=== PATIENT | female | born 1960 | race Caucasian/White ===

== ENCOUNTER 2016-04-09 13:44 | Emergency (ER) | payer MEDICAID ==
[2016-04-09] MEDS ORDERED: ALBUTEROL NEB 2.5 MG/3 ML INH STA (14:55)
[2016-04-09] MEDS ORDERED: predniSONE 20 MG TABLET PO STA ×2 (14:55→15:11)
[2016-04-09] MEDS ORDERED: predniSONE 20 MG TABLET ONE (15:06)
[2016-04-09] MEDS ORDERED: ALBUTEROL NEB 2.5 MG/3 ML INH ONE (15:09)
== END 2016-04-09 15:52 | disposition home or self-care (01) ==
DX: J06.9 Acute upper respiratory infection, unspecified (principal); B97.89 Other viral agents as the cause of diseases classified elsewhere; J45.909 Unspecified asthma, uncomplicated; F17.200 Nicotine dependence, unspecified, uncomplicated
CPT/HCPCS: 71020; 94640; 94664; 99283; J7512; J7613

== ENCOUNTER 2018-04-15 14:21 | Outpatient (CLI) | payer MEDICAID, OTHER ==
[2018-04-15 18:47] LABS: BASOPHILS # (AUTO) 0.1 10^3/uL (0.0-0.1); BASOPHILS % (AUTO) 1.3 %; EOSINOPHILS # (AUTO) 0.2 10^3/uL (0.0-0.7); EOSINOPHILS % (AUTO) 2.8 %; HGB - HEMOGLOBIN 13.4 g/dL (12.0-16.0); LYMPHOCYTES # (AUTO) 1.9 10^3/uL (1.5-3.5); LYMPHOCYTES % (AUTO) 31.4 %; MEAN CORPUSCULAR HEMOGLOBIN 30.2 pg (27.0-31.0); MEAN CORPUSCULAR HGB CONC 33.3 g/dL (32.0-36.0); MEAN CORPUSCULAR VOLUME 90.6 fL (81.0-99.0); MEAN PLATELET VOLUME 9.8 fL (7.9-10.8); MONOCYTES # (AUTO) 0.3 10^3/uL (0.0-1.0); MONOCYTES % (AUTO) 5.7 %; NEUTROPHILS # (AUTO) 3.5 10^3/uL (1.5-6.6); NEUTROPHILS % (AUTO) 58.8 %; PLT - PLATELET COUNT 209 10^3/uL (130-450); RED BLOOD COUNT 4.46 10^6/uL (4.20-5.40); RED CELL DISTRIBUTION WIDTH 13.3 % (12.0-15.0)
[2018-04-15 19:02] LABS: ALBUMIN 4.3 g/dL (3.2-5.5); ALBUMIN/GLOBULIN RATIO 1.2 (1.0-2.2); ALKALINE PHOSPHATASE 75 IU/L (42-121); ALT ALANINE AMINOTRANSFERASE 20 IU/L (10-60); AST ASPARTATE AMINOTRANSFERASE 22 IU/L (10-42); BILIRUBIN,TOTAL 0.6 mg/dL (0.2-1.0); BUN - BLOOD UREA NITROGEN 13 mg/dL (6-20); CALCIUM 9.1 mg/dL (8.5-10.3); CARBON DIOXIDE - CO2 30 mmol/L (21-32); CHLORIDE 99 mmol/L (101-111); CHOL/HDL RATIO 3.7 (<4.4); CHOLESTEROL 214 mg/dL; CREATININE 0.9 mg/dL (0.4-1.0); GFR - MDRD 64 (>89); GLUCOSE 113 mg/dL (70-100); HDL CHOLESTEROL 58 mg/dL; LDL CHOLESTEROL,CALCULATED 126 mg/dL; LDL/HDL RATIO 2.2 (<4.4); SODIUM 134 mmol/L (135-145); TOTAL PROTEIN 7.8 g/dL (6.7-8.2); VLDL CHOLESTEROL 30 mg/dL
[2018-04-15 19:14] LABS: HB2 TOTAL 14.5 g/dL; HEMOGLOBIN A1C 0.61 g/dL
== END 2018-04-15 23:59 ==
LOC: LAB.WCP 14:21
PROVIDERS: ATTEND Physician Assistant
DX: I10 Essential (primary) hypertension (principal); Z00.00 Encounter for general adult medical examination without abnormal findings
CPT/HCPCS: 36415; 80053; 80061; 83036; 83721; 85025

== ENCOUNTER 2018-04-30 13:23 | Outpatient (CLI) | payer OTHER | END 2018-04-30 13:24 | disposition home or self-care (01) | LOC: NS 13:23 | PROVIDERS: ATTEND Physician Assistant | DX: Z71.3 Dietary counseling and surveillance (principal); R73.03 Prediabetes; E66.9 Obesity, unspecified; Z68.39 Body mass index [BMI] 39.0-39.9, adult | CPT/HCPCS: 97802 ==

== ENCOUNTER 2018-06-04 12:51 | Outpatient (CLI) | payer OTHER | END 2018-06-04 12:52 | disposition home or self-care (01) | LOC: NS 12:51 | PROVIDERS: ATTEND Physician Assistant | DX: Z71.3 Dietary counseling and surveillance (principal); E66.9 Obesity, unspecified; R73.03 Prediabetes; Z68.38 Body mass index [BMI] 38.0-38.9, adult | CPT/HCPCS: 97803 ==

== ENCOUNTER 2018-06-19 14:46 | Outpatient (CLI) | payer OTHER ==
--- NOTE | 2018-06-19 17:27 | Mammography Report ---
Reason: SCREENING MAMMO Procedure Date: 06/19/2018 Accession Number: [id number] / [id number] Procedure: GENET - Screening Mammo w/Deric CPT Code: FULL RESULT: EXAM: Screening Mammo w/Deric DATE: 06/19/2018 3:29 PM CLINICAL HISTORY: Routine screening. No reported personal history of breast cancer. Family history breast cancer mother at age 80. TECHNIQUE: Bilateral CC and MLO views were obtained. COMPARISON: 09/06/2010 through 05/03/2009 FINDINGS: The breasts demonstrate heterogeneously dense fibroglandular parenchyma bilaterally. Bilateral breasts: There are no suspicious masses, calcifications or areas of distortion. IMPRESSION: Negative examination RECOMMENDATION: Routine annual screening unless otherwise clinically indicated. BI-RADS CATEGORY 1: Negative STANDARD QUALIFYING STATEMENTS: 1. This examination was not reviewed with the aid of Computer-Aided Detection (CAD). 2. A negative or benign imaging report should not preclude biopsy if clinically suspicious findings are present. 3. Dense breasts may obscure an underlying neoplasm. 4. This examination was reviewed with the aid of 3D breast imaging (tomosynthesis).
== END 2018-06-19 14:47 | disposition home or self-care (01) ==
LOC: DI 14:46
DX: Z12.31 Encounter for screening mammogram for malignant neoplasm of breast (principal); Z80.3 Family history of malignant neoplasm of breast
CPT/HCPCS: 77063; 77067

== ENCOUNTER 2018-07-09 11:59 | Day surgery (SDC) | payer OTHER ==
[2018-07-09] MEDS ORDERED: LACTATED RINGERS 1,000 ML IV ONE (12:25)
[2018-07-09] MEDS ORDERED: MIDAZOLAM 2 MG/2 ML VIAL IVP ONE (13:24)
[2018-07-09] MEDS ORDERED: fentaNYL 250 MCG/5 ML VIAL IVP ONE (13:24)
[2018-07-09 14:11] VITALS: BP 112/69
== END 2018-07-09 12:00 | disposition home or self-care (01) ==
LOC: SDS 11:59
PROVIDERS: ATTEND Internal Medicine Gastroenterology
PROC: 0DBN8ZZ Excision of Sigmoid Colon, Via Natural or Artificial Opening Endoscopic (ICD-10-PCS; principal; 2018-07-09 13:15)
DX: Z12.11 Encounter for screening for malignant neoplasm of colon (principal); K63.5 Polyp of colon; K57.30 Diverticulosis of large intestine without perforation or abscess without bleeding; E11.9 Type 2 diabetes mellitus without complications; J44.9 Chronic obstructive pulmonary disease, unspecified; I10 Essential (primary) hypertension; J30.9 Allergic rhinitis, unspecified; E66.9 Obesity, unspecified; Z68.37 Body mass index [BMI] 37.0-37.9, adult; Z79.52 Long term (current) use of systemic steroids; Z79.51 Long term (current) use of inhaled steroids; Z79.84 Long term (current) use of oral hypoglycemic drugs; Z87.891 Personal history of nicotine dependence
CPT/HCPCS: 45380; J3010; J7120

== ENCOUNTER 2018-07-16 13:00 | Outpatient (CLI) | payer OTHER | END 2018-07-16 13:01 | disposition home or self-care (01) | LOC: NS 13:00 | PROVIDERS: ATTEND Physician Assistant | DX: Z71.3 Dietary counseling and surveillance (principal); R73.03 Prediabetes; E66.9 Obesity, unspecified; Z68.37 Body mass index [BMI] 37.0-37.9, adult | CPT/HCPCS: 97803 ==

== ENCOUNTER 2019-04-01 08:25 | Outpatient (CLI) | payer OTHER ==
--- NOTE | 2019-04-01 10:14 | SLEEP CARE CONSULTATION ---
Information from patient questionnaire entered by Latia Anna. I have reviewed and concur with the information entered by Latia Anna. This document represents the service I personally performed and the decisions made by me, Alma Bai, RN, MSN, HOBBER. History of Present Illness Reason for Visit: New patient Chief Complaint: reports: Unrefreshed sleep, Snoring, Observed pauses in breathing (recently observed on family), Fatigue Duration of Symptoms: 40-45 years Usual bedtime: 11 pm - 1 am Time it takes to fall asleep: 5-15 mins Snores at night: Yes Observed to quit breathing while asleep: Yes Number of times waking at night: 0-1 Reasons for waking at night: reports: Choking (once only recently noted ), Bathroom, Other (coughing) Toss, Turn, or Twitch while sleeping: No Recalls having dreams: Yes Usually gets out of bed at: 8-9 am Feels refreshed in the morning: No Morning headache: No (only after naps ) Sleepy or fatigued during the day: Yes Ever fallen asleep while driving: No Takes day naps: Yes (seldom - a couple times a month) Dreams during day naps: No Prior sleep studies: No - Parasomnia Symptoms Ever been unable to move upon waking from sleep: No Walks in sleep: No Talks in sleep: No Ever acted out dreams in sleep: No Ever felt weak in the knees when startled or emotional: No Bothered by creepy, crawly, restless sensations in legs: No Problems with memory or concentration: No Subjective Initial [place] Sleepiness Scale score: 14 Past Medical History Past Medical History: reports: Hypertension, Diabetes, Insulin resistance, Asthma (Patient reports as asthma but PCP referral note states COPD), GERD, Other (environmental allergies) Social History The patient's occupation is retired. Patient is / and lives in [facility]. Have you smoked in the past 12 months: No Cigarettes per day (20/pack): 20 Years of smokin (slowly decreased intake the last 8 years ) Quit date: 3 years ago Smoking Pack Years: 40.0 Alcohol use: Yes Alcohol amount and frequency: 1 drink a month Caffeine use: Yes Caffeine amount and frequency: 2 cups Family History Family history of sleep disordered breathing: Yes Family Hx Sleep Apnea: Mother: Snoring, Sibling: Snoring, Other: Sleep apnea - Treated (son just started CPAP) Allergies and Home Medications Known drug allergies: Yes (Advil ) Drug allergies reviewed: Yes Home medication list reviewed: Yes Allergy and home medication list: Advair 250/50mcg daily Spiriva daily Pro AIR rescue inhaler prn Azelastine daily Kis Aler-Darvin nasal spray 2 sprays daily Cetirizine 10mg daily B Complex daily Vitafusion vitamins daily Metformin 500mg daily Losartan 50mg daily hydrochlorithiazide 25mg daily OTC ibuprofen or acetaminophen daily olopatadine eye solution as needed. Review of Systems Weight loss over past 5 years: 32 Cardiovascular: reports: high blood pressure Respiratory: reports: shortness of breath (exersion such as stairs), wheeze (seldom) Gastrointestinal: reports: heartburn (seldom ) Neurological: reports: headaches (seldom) Ear/Nose/Throat: reports: nasal congestion, sinus problems, dry mouth/throat (most of time ) Endocrine: reports: sluggishness Immunologic: reports: sneezing Physical Exam Blood Pressure: 114/80 Cuff size: long Heart Rate: 78 O2 Saturation: 97 Height: 5 ft 4.5 in Weight: 213 lb 3.2 oz Body Mass Index: 36.0 BMI Classification: Obesity Class 2 Neck circumference: 15 Nasal exam: positive: erythema, blood tinged nasal secretions HEENT: No craniofacial malformation Nostrils: partially obstructed Turbinates: boggy Septum: deviated right Mouth and throat: narrow oropharynx Soft palate: long Hard palate: normal Uvula: normal Uvula visualization: 25% Mallampati Class III Tongue: normal in size (wears dentures but does not like and not in today) Tonsils: small Chin and jaw: normal size and position Neck: normal w/o lymphadenopathy or thyromegaly Heart: regular rate and rhythm Lungs: clear bilaterally Abdomen: soft, non-tender, other: (small non tender smooth mass aproximately 1cm left upper left quadrant) Extremities: no edema or clubbing Neurologic: intact (grossly) Impression and Plan 1. Suspected Obstructive Sleep Apnea-Hypopnea Syndrome, as suggested by a history of loud and irregular snoring, observed cessation of breath while asleep, unrefreshed sleep, and excessive daytime sleepiness. Narrow oropharynx and obesity are common predisposing factors for obstructive sleep apnea-hypopnea syndrome. Essential hypertension can be caused by untreated apnea. I recommend proceeding to polysomnography to confirm the diagnosis and to assess severity. If the patient has significant sleep disordered breathing, a manual CPAP titration study will also be performed to find the optimal treatment pressure. I informed the patient of what the sleep studies involve and after some discussion, obtained agreement to proceed. The pathophysiology of obstructive sleep apnea-hypopnea syndrome was discussed with the patient and health risks of cardiovascular and cerebrovascular disease if not treated. AAS brochure for obstructive sleep apnea-hypopnea syndrome given and reviewed. 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 Patient agreed to plan. * Schedule polysomnography +- manual CPAP titration study * Avoid long distance driving or driving when feeling sleepy. * Avoid alcohol, sedative and muscle relaxant around bedtime. * Continue to lose weight. * Follow up with PCP for further evaluation of left upper quadrant small mass noted recently by patient. * Review instructions provided by trained office staff on how to prepare for the sleep study. * Return for follow-up after sleep study completed. Time Spent with Patient (minutes): 40 I spent 100% of this visit face to face with the patient with greater than 50% of this was spent time counseling the patient and coordination of care.
[2019-04-01 10:15] VITALS: BP 114/80
== END 2019-04-01 08:26 | disposition home or self-care (01) ==
LOC: SC 08:25
PROVIDERS: ATTEND Nurse Practitioner Family
DX: G47.10 Hypersomnia, unspecified (principal); R06.81 Apnea, not elsewhere classified; G47.8 Other sleep disorders; R06.83 Snoring; E66.9 Obesity, unspecified; Z68.36 Body mass index [BMI] 36.0-36.9, adult; F17.210 Nicotine dependence, cigarettes, uncomplicated
CPT/HCPCS: 99204; 99212

== ENCOUNTER 2019-04-08 19:30 | Outpatient (CLI) | payer OTHER | END 2019-04-08 19:31 | disposition home or self-care (01) | LOC: SC 19:30 | PROVIDERS: ATTEND Internal Medicine Pulmonary Disease | DX: G47.10 Hypersomnia, unspecified (principal); R06.81 Apnea, not elsewhere classified; E66.9 Obesity, unspecified; Z68.36 Body mass index [BMI] 36.0-36.9, adult | CPT/HCPCS: 95810 ==

== ENCOUNTER 2019-05-20 13:16 | Outpatient (CLI) | payer OTHER ==
[2019-05-20 14:15] VITALS: BP 110/74
--- NOTE | 2019-05-20 14:15 | SLEEP CARE CONSULTATION ---
Information from patient questionnaire entered by Latia Anna. I have reviewed and concur with the information entered by Latia Anna. This document represents the service I personally performed and the decisions made by me, Alma Bai RN, MSN, FINE [employer]ER. History of Present Illness Initial [place] Sleepiness Scale score: 14 Current [place] Sleepiness Scale score: 13 Additional HPI information: MELA FOUNTAIN returns for follow up and results of the recently performed polysomnography. I explained the pathophysiology behind obstructive sleep apnea. The sleep study showed that the patient has snoring but no significant sleep disorderd breathing. However, she felt she did not sleep much that night and she did have reduced sleep efficiency noted on sleep study due to sleep onset insomnia and prolonged awakenings during the night. The patient usually sleeps better at home but has slept more restless since sleep test for unknown reason. Patient has moderate to loud snoring. Snoring and apnea risk can be reduced by weight loss. Weight loss is best achieved with diet consult. Patient instructed to contact PCP for referral if needed. So far she has been successful in losing 40 pounds and plans on losing more. Snoring can also be treated with an oral appliance from a dentist but patient wears dentures so not an option. In addition, an ENT evaluation can be do to see if other treatment is indicated. Patient counseled not drink alcohol less than 4 hours before bedtime as it can increase snoring and apnea. Patient was cautioned about risks of drowsy driving until sleepiness symptoms resolve. Patient denies drowsy driving. [facility] patient education on snoring and sleep apnea given and reviewed at last visit . Sleep Study - Results Polysomnography/Home Sleep Study results: The quality of the study is good. The patient had reduced sleep efficiency due to sleep onset insomnia and a prolonged awakening in the middle of the night.. The sleep architecture was abnormal for sleep fragmentation and reduced amount of time spent in REM sleep. Respiratory monitoring showed no significant sleep disordered breathing (AHI = 1.5) or hypoxia (julian oxygen saturation of 89%). The few respiratory events occurred mainly during supine sleep (supine AHI = 4.3; non-supine = 1.10). Snore was moderate to loud in intensity. There was no significant periodic leg movement of sleep. Cardiac rhythm was normal sinus rhythm without significant arrhythmia. No abnormal behavior (parasomnia) observed during the night. Allergies and Home Medications Known drug allergies: Yes (advil ) Home medication list reviewed: Yes (no changes from initial ) Review of Systems Review of systems same as previous: Yes Physical Exam Blood Pressure: 110/74 Cuff size: long Heart Rate: 81 O2 Saturation: 97 Height: 5 ft 5 in Weight: 216 lb 9.6 oz (with shoes ) Weight change since last visit: gained 3 pounds Body Mass Index: 36.0 BMI Classification: Obese Neck circumference: 15 Uvula visualization: 25% Mallampati Class III Impression and Plan 1. Suspected sleep apnea. Polysomnography showed snoring but no significant sleep disordered breathing. 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 She felt she not even sleep what sleep that was recorded. Thus since there is no change in sleepiness symptoms ( [place] sleepiness scale 13) or physical exam ( Mallapatti lll), I advise a home sleep study to rule out any significant sleep disordered breathing as she has hypertension and diabetes which can be caused by untreated apnea. Patient advised also how losing weight will reduce her snoring and apnea risk and she is working on weight loss. * Home sleep study * Attempt to lose weight * Avoid alcohol consumption near bedtime * The patient is cautioned about driving until sleepiness is completely resolved. * Return after home sleep study completed. for follow up. I will response compliance at that time. Time Spent with Patient (minutes): 30 I spent 100% of this visit face to face with the patient with greater than 50% of this was spent time counseling the patient and coordination of care.
== END 2019-05-20 13:17 | disposition home or self-care (01) ==
LOC: SC 13:16
PROVIDERS: ATTEND Nurse Practitioner Family
DX: G47.10 Hypersomnia, unspecified (principal); R06.83 Snoring; E66.9 Obesity, unspecified; Z68.36 Body mass index [BMI] 36.0-36.9, adult
CPT/HCPCS: 99212; 99214

== ENCOUNTER 2020-06-28 13:09 | Outpatient (CLI) | payer OTHER ==
--- NOTE | 2020-06-29 08:24 | Mammography Report ---
BILATERAL DIGITAL SCREENING MAMMOGRAM 3D/2D: 06/28/2020 CLINICAL: Routine screening. Comparison is made to exams dated: 06/19/2018 mammogram and 09/06/2010 mammogram - [facility]. The tissue of both breasts is heterogeneously dense. This may lower the sensitivity of diane mography. There are benign calcifications in both breasts. No significant masses, calcifications, or other findings are seen in either breast. There has been no significant interval change. IMPRESSION: BENIGN There is no mammographic evidence of malignancy. A 1 year screening mammogram is recommended. This exam was interpreted at Station ID: [id number]. NOTE: For mammograms, a report in lay terms will be sent to the patient. Approximately 15% of breast malignancies will not be visualized mammographically. In the management of a palpable breast mass, a negative mammogram must not discourage biopsy of a clinically suspicious lesion. Electronically Signed By: Margot garcía/penrad:06/28/2020 13:55:43 ACR BI-RADS Category 2: Benign Finding(s) 3342F PARENCHYMAL PATTERN: (D) - The breast(s) demonstrate(s) heterogeneously dense fibroglandular courtney bro. BI-RADS CATEGORY: (2) - 2 RECOMMENDATION: (ANNUAL) - Recommend routine annual screening mammography. [id number] 1 year screening LATERALITY: (B)
== END 2020-06-28 13:10 | disposition home or self-care (01) ==
LOC: DI 13:09
DX: Z12.31 Encounter for screening mammogram for malignant neoplasm of breast (principal)

== ENCOUNTER 2022-06-10 14:06 | Outpatient (CLI) | payer OTHER ==
--- NOTE | 2022-06-11 10:36 | Mammography Report ---
BILATERAL DIGITAL SCREENING MAMMOGRAM 3D/2D: 06/10/2022 CLINICAL: Routine screening. Comparison is made to exams dated: 06/28/2020 mammogram and 06/19/2018 mammogram - [facility]. Both breasts are heterogeneously dense, which may obscure small masses (category c / 51-75% glandular tissue). There are benign calcifications in both breasts. No significant masses, calcifications, or other findings are seen in either breast. There has been no significant interval change. IMPRESSION: BENIGN There is no mammographic evidence of malignancy. A 1 year screening mammogram is recommended. Based on the Tyrer Cuzick model (a risk assessment model) the patients lifetime risk is 12.9% and he r 10 year risk is 6.1%. According to the ACR, ACS, and NCCN guidelines, an annual breast MRI exam ligia ng with mammogram is recommended if the patients lifetime risk is 20% or greater. This exam was interpreted at Station ID: [id number]. NOTE: For mammograms, a report in lay terms will be sent to the patient. Approximately 15% of breast malignancies will not be visualized mammographically. In the management of a palpable breast mass, a negative mammogram must not discourage biopsy of a clinically suspicious lesion. Electronically Signed By: Neri melendez/jane:06/10/2022 17:51:35 letter sent: No_Letter ACR BI-RADS Category 2: Benign Finding(s) 3342F PARENCHYMAL PATTERN: (D) - The breast(s) demonstrate(s) heterogeneously dense fibroglandular courtney bro. BI-RADS CATEGORY: (2) - 2 Mammogram [id number] 1 year screening LATERALITY: (B)
== END 2022-06-10 14:07 | disposition home or self-care (01) ==
LOC: DI 14:06
DX: Z12.31 Encounter for screening mammogram for malignant neoplasm of breast (principal)

== ENCOUNTER 2023-02-21 11:15 | Outpatient (CLI) | payer MEDICARE, OTHER ==
[2023-02-21 11:40] LABS: CALCIUM 9.4 mg/dL (8.5-10.3); CREATININE 0.8 mg/dL (0.6-1.3); POTASSIUM 3.9 mmol/L (3.5-4.5)
[2023-02-21 12:22] LABS: ESTIMATED AVERAGE GLUCOSE 126 mg/dL (70-100)
== END 2023-02-21 11:16 | disposition home or self-care (01) ==
LOC: LAB 11:15
PROVIDERS: ATTEND Family Medicine
DX: E11.9 Type 2 diabetes mellitus without complications (principal); E66.9 Obesity, unspecified
CPT/HCPCS: 36415; 80048; 83036

== ENCOUNTER 2023-07-18 11:28 | Emergency (ER) | payer MEDICARE, OTHER ==
[2023-07-18 11:46] VITALS: O2SAT 97
--- NOTE | 2023-07-18 12:02 | ED Physician Documentation ---
History of Present Illness - Stated complaint Stated Complaint: - Chief complaint Chief Complaint: General - Additonal information Additional information: 63 yo female Was sent here to the emergency department from the walk-in clinic for concerns of possible bladder prolapse. Patient says that she started to notice some vaginal bulging a couple days ago she has had no pain no urinary urgency no urinary frequency no dysuria. Patient says that she called to make an appoint with her primary care provider and they informed her that if she wanted to go to the walk-in clinic she can do so she went to the walk-in clinic and the walk-in clinic nurse practitioner was concern for possible bladder prolapse so she was sent to the emergency department for further evaluation. Patient reports that she had 3 vaginal births without any difficulty or complication. She says she has always had urinary incontinence since she has had her babies for decades there is been no change in this pattern. No bladder pain no lower abdominal pain no pelvic pain. No fevers or chills. PD PAST MEDICAL HISTORY - Past Medical History Cardiovascular: Hypertension Respiratory: Asthma, COPD Endocrine/Autoimmune: Type 2 diabetes GI: GERD : None HEENT: Chronic sinusitis Psych: Anxiety Musculoskeletal: Gout Derm: None - Past Surgical History Past Surgical History: Yes General: EGD - Present Medications Home Medications: Ambulatory Orders Medication Instructions Recorded Confirmed Albuterol Sulf [Ventolin Hfa 2 puffs INH Q4HR PRN #1 inhaler 04/09/16 07/18/23 Inhaler] Cetirizine [ZyrTEC] 10 mg PO DAILY 07/08/18 07/18/23 Fluticasone/Salmeterol [Advair 1 inhaler PO BID 07/08/18 07/18/23 100-50 Diskus] Montelukast [Singulair] 10 mg PO DAILY 07/08/18 07/18/23 Tiotropium [place] [Spiriva] 18 mcg INH BID 07/08/18 07/18/23 hydroCHLOROthiazide 25 mg PO DAILY 07/08/18 07/18/23 [Hydrochlorothiazide] metFORMIN [Glucophage] 1,000 mg PO DAILY PM 07/08/18 07/18/23 - Allergies Allergies/Adverse Reactions: Allergies Allergy/AdvReac Type Severity Reaction Status Date / Time venom-honey bee Allergy Anaphylaxis Verified 07/18/23 11:44 codeine AdvReac Headache Verified 07/18/23 11:44 ibuprofen [From Advil] AdvReac Itching Verified 07/18/23 11:44 - Social History Does the pt smoke?: No Smoking Status: Former smoker Does the pt drink ETOH?: Yes Does the pt have substance abuse?: No - Immunizations Immunizations are current?: Yes PD ED PE NORMAL - Vitals Vital signs reviewed: Yes - General General: Alert and oriented X 3, No acute distress, Well developed/nourished - Abdomen Abdomen: Soft, Non tender, No organomegaly - Back Back: No CVA TTP - Derm Derm: Normal color, Warm and dry - Psych Psych: Normal mood, Normal affect PD ED PE EXPANDED - Female Female : Tissue present (bulging tissue at the 6:00 region of vagina), Supply Aide present (VINCENZO Guerra At bedside). No: Skin lesions, Vaginal Bleeding, Vaginal Discharge, CMT, Dilated cervix, Enlarged uterus Results - Vitals Vitals: Vital Signs - 24 hr 07/18/23 11:35 Temperature 36.3 C L Heart Rate 85 Respiratory 18 Rate Blood Pressure 151/97 H O2 Saturation 97 Oxygen O2 Source Room air - Labs Labs: Laboratory Tests 07/18/23 12:26 Urine Color YELLOW Urine Clarity CLEAR Urine pH 6.0 Ur Specific [place] 1.020 Urine Protein NEGATIVE Urine Glucose (UA) NEGATIVE Urine Ketones NEGATIVE Urine Occult Blood TRACE-INTA Urine Nitrite NEGATIVE Urine Bilirubin NEGATIVE Urine Urobilinogen 0.2 (NORMAL) Ur Leukocyte Esterase NEGATIVE Ur Microscopic Review NOT INDICATED Urine Culture Comments NOT INDICATED PD Medical Decision Making - ED course ED course: 63-year-old female presents emergency department for concerns of bladder prolapse from the walk-in clinic. Ultrasound does not reveal any vaginal or b ladder prolapse. On my exam with Corina LOYA as account officer I do not see any signs or symptoms or concerns of bladder prolapse. Ultrasound also confirms there is no concerns with bladder prolapse unfortunately not ideal ultrasound was complete as patient's bladder was not full. I do not believe that patient needs any further emergent workup. She has no dysuria no bladder pain no CVA tenderness. Urinalysis is unremarkable for any signs symptoms of urinary tract infection. Patient has an appoint with her primary care provider soon where she will get a PARTS CONSULTANT referral for further evaluation of this but at this point in time I do not believe that patient is experiencing a bladder or vaginal prolapse there is a possibility that there could be a very minor vaginal wall prolapse the patient is still able to empty her bladder without any difficulty as well as her bowels. Departure - Departure Disposition: 01 Home, Self Care Clinical Impression: Vaginal wall prolapse Instructions: Pap Test Comments: Thank you for trusting us with your care. Ultrasound did not reveal any acute abnormalities or findings at this point in time although I do think that you would greatly benefit from having PARTS CONSULTANT further evaluate you. Please come back to the emergency department for starting to notice any fevers or chills, vaginal pain or discomfort, or any other concerning emergent symptoms. Forms: PCP List
[2023-07-18 12:34] LABS: BILIRUBIN,URINE NEGATIVE (NEGATIVE); GLUCOSE, URINE (UA) NEGATIVE (NEGATIVE); KETONES,URINE (UA) NEGATIVE (NEGATIVE); LEUKOCYTE ESTERASE, URINE NEGATIVE (NEGATIVE); NITRITE,URINE NEGATIVE (NEGATIVE); OCCULT BLOOD,URINE TRACE-INTA (NEGATIVE); PROTEIN,URINE NEGATIVE (NEGATIVE); UROBILINOGEN,URINE 0.2 (NORMAL) E.U./dL (NORMAL)
[2023-07-18 12:36] LABS: CLARITY,URINE CLEAR (CLEAR)
[2023-07-18 14:30] VITALS: BP 146/72
--- NOTE | 2023-07-18 16:09 | Ultrasound Report ---
PROCEDURE: Pelvic Limited INDICATIONS: check for prolapse TECHNIQUE: Real-time transabdominal scanning was performed of the pelvic organs, with image documentation. Melchor slabial imaging was utilized. COMPARISON: None. FINDINGS: Translabial imaging with and without Valsalva demonstrates no evidence of bladder or uterine prolapse . IMPRESSION: Negative limited pelvic ultrasound for evidence of bladder or uterine prolapse. Reviewed by: Ben Rodriguez MD on 07/18/2023 4:08 PM PDT Approved by: Ben Rodriguez MD on 07/18/2023 4:08 PM PDT Station ID: [id number]
== END 2023-07-18 14:30 | disposition home or self-care (01) ==
LOC: ED 11:28
DX: N81.10 Cystocele, unspecified (principal); I10 Essential (primary) hypertension; J44.9 Chronic obstructive pulmonary disease, unspecified; E11.9 Type 2 diabetes mellitus without complications; M10.9 Gout, unspecified; Z79.84 Long term (current) use of oral hypoglycemic drugs; Z79.899 Other long term (current) drug therapy
CPT/HCPCS: 81001; 81003; 87086; 99283; 99284

== ENCOUNTER 2023-08-08 16:10 | Outpatient (CLI) | payer MEDICARE, OTHER ==
[2023-08-08 16:30] LABS: BASOPHILS # (AUTO) 0.1 10^3/uL (0.0-0.1); BASOPHILS % (AUTO) 0.9 %; EOSINOPHILS # (AUTO) 0.1 10^3/uL (0.0-0.7); EOSINOPHILS % (AUTO) 1.2 %; HGB - HEMOGLOBIN 12.8 g/dL (12.0-16.0); LYMPHOCYTES # (AUTO) 2.1 10^3/uL (1.5-3.5); LYMPHOCYTES % (AUTO) 24.3 %; MEAN CORPUSCULAR HEMOGLOBIN 27.9 pg (27.0-31.0); MEAN CORPUSCULAR VOLUME 87.1 fL (81.0-99.0); MEAN PLATELET VOLUME 10.4 fL (7.9-10.8); MONOCYTES # (AUTO) 0.7 10^3/uL (0.0-1.0); MONOCYTES % (AUTO) 7.6 %; NEUTROPHILS # (AUTO) 5.6 10^3/uL (1.5-6.6); NEUTROPHILS % (AUTO) 65.8 %; PLT - PLATELET COUNT 225 10^3/uL (130-450); RED BLOOD COUNT 4.59 10^6/uL (4.20-5.40); RED CELL DISTRIBUTION WIDTH 13.2 % (12.0-15.0); WHITE BLOOD COUNT 8.5 x10^3/uL (4.8-10.8)
[2023-08-08 16:51] LABS: ALBUMIN 4.5 g/dL (3.2-5.5); ALBUMIN/GLOBULIN RATIO 1.7 (1.0-2.2); ALKALINE PHOSPHATASE 60 IU/L (42-121); ALT ALANINE AMINOTRANSFERASE 15 IU/L (10-60); AST ASPARTATE AMINOTRANSFERASE 16 IU/L (10-42); BILIRUBIN,TOTAL 0.6 mg/dL (0.2-1.0); BUN - BLOOD UREA NITROGEN 15 mg/dL (6-20); CALCIUM 9.8 mg/dL (8.5-10.3); CARBON DIOXIDE - CO2 27 mmol/L (21-32); CHLORIDE 104 mmol/L (101-111); CHOL/HDL RATIO 3.2 (<4.4); CHOLESTEROL 210 mg/dL; CREATININE 0.8 mg/dL (0.6-1.3); GFR - MDRD 72 (>89); GLUCOSE 97 mg/dL (74-104); HDL CHOLESTEROL 65 mg/dL; LDL CHOLESTEROL,CALCULATED 121 mg/dL; LDL/HDL RATIO 1.9 (<4.4); POTASSIUM 3.3 mmol/L (3.5-4.5); SODIUM 140 mmol/L (135-145); TOTAL PROTEIN 7.2 g/dL (6.4-8.9); TRIGLYCERIDES 120 mg/dL (48-352); VLDL CHOLESTEROL 24 mg/dL
[2023-08-08 17:03] LABS: THYROID STIMULATING HORMONE 2.21 uIU/mL (0.34-5.60)
[2023-08-08 21:45] LABS: ESTIMATED AVERAGE GLUCOSE 131 mg/dL (70-100); HEMOGLOBIN A1c% 6.2 % (4.27-6.07)
== END 2023-08-08 16:11 | disposition home or self-care (01) ==
LOC: LAB 16:10
PROVIDERS: ATTEND Family Medicine
DX: I10 Essential (primary) hypertension (principal); E66.9 Obesity, unspecified; K21.9 Gastro-esophageal reflux disease without esophagitis; E78.2 Mixed hyperlipidemia; E11.9 Type 2 diabetes mellitus without complications; J44.9 Chronic obstructive pulmonary disease, unspecified
CPT/HCPCS: 36415; 80053; 80061; 83036; 83721; 84443; 85025

== ENCOUNTER 2023-10-09 11:51 | Outpatient (CLI) | payer MEDICARE, OTHER ==
--- NOTE | 2023-10-09 20:53 | XRAY Report ---
PROCEDURE: Chest 2V INDICATIONS: COUGH TECHNIQUE: 2 views of the chest were acquired. COMPARISON: Chest x-ray 04/09/2016 FINDINGS: Surgical changes and devices: None. Lungs and pleura: No pleural effusions or pneumothorax. Lungs are clear. Mediastinum: Mediastinal contours appear normal. Heart size is normal. Bones and chest wall: No suspicious bony lesions. Overlying soft tissues appear unremarkable. IMPRESSION: No acute cardiopulmonary process. Reviewed by: Gertrude Miranda MD on 10/09/2023 8:51 PM PDT Approved by: Gertrude Miranda MD on 10/09/2023 8:51 PM PDT Station ID: [id number]
== END 2023-10-09 11:52 | disposition home or self-care (01) ==
LOC: DI 11:51
PROVIDERS: ATTEND Emergency Medicine
DX: R05.9 Cough, unspecified (principal)